=== PATIENT | female | born 1935 | race Caucasian/White ===

== ENCOUNTER 2019-08-10 15:52 | Emergency (ER) | payer MEDICARE, OTHER ==
[~2019-08-10] VITALS: Ht 154.9 cm; Wt 52.2 kg
[2019-08-10 16:00] VITALS: BP_SYST 106
--- NOTE | 2019-08-10 16:00 | NUR ---
Patient to ER bed 02 to gown for evaluation. Side rails up.
--- NOTE | 2019-08-10 16:05 | NUR ---
Patient brought in by [employer] [facility] ambulance c/o generalized weakness and low blood pressure that started today. Curriculum Development Manager stated that patient was hypotensive during their assessment. Denied any chest pain or shortness of breath. Patient is alert and oriented x2, respirations even and unlabored, speaking in full sentences. VSS, pain level 0/10. Informed of the wait time. Instructed to notify ED staff for any changes in condition or worsening of symptoms. Patient verbalized understanding.
[2019-08-10] MEDS ORDERED: NACL 0.9% 1,000 ML IV ONE (16:25)
--- NOTE | 2019-08-10 16:30 | NUR ---
ER Dr. Baker at bedside examining patient.
--- NOTE | 2019-08-10 16:45 | NUR ---
cardiac cath lab technologist at bedside collecting blood specimen. Patient tolerated the procedure well.
[2019-08-10 17:02] LABS: BASOPHILS % (AUTO) 0.2 % (0.0-2.0); EOSINOPHILS % (AUTO) 0.1 % (0.0-4.0); HEMATOCRIT 38.6 % (36-48); HEMOGLOBIN 13.1 g/dL (12.0-16.0); LYMPHOCYTES # (AUTO) 0.5 K/uL (1.0-5.5); MEAN CORPUSCULAR HEMOGLOBIN 31 pg (27-31); MEAN CORPUSCULAR HGB CONC 34 % (32-36); MEAN CORPUSCULAR VOLUME 90 fL (79.0-98.0); MONOCYTES # (AUTO) 0.6 K/uL (0.0-1.0); MONOCYTES % (AUTO) 4.9 % (1.7-9.3); NEUTROPHILS # (AUTO) 10.7 K/uL (1.8-7.7); NEUTROPHILS % (AUTO) 90.8 % (40.0-70.0); PLATELET COUNT (AUTO) 205 K/uL (130-430); RED BLOOD CELL COUNT(AUTO) 4.29 MIL/uL (4.2-6.2); RED CELL DISTRIBUTION WIDTH 13.8 % (9.0-15.0); WHITE BLOOD COUNT (AUTO) 11.8 K/uL (4.8-10.8)
--- NOTE | 2019-08-10 17:04 | NUR ---
ECG done at bedside as ordered by Dr. Baker. Patient tolerated the procedure well. Report given to
[2019-08-10 17:18] LABS: ANION GAP 13 (5-15); CALCIUM 10.2 mg/dL (8.4-11.0); CHLORIDE 100 mmol/L (98-107); CREATININE 1.83 mg/dL (0.55-1.30); GLUCOSE 149 mg/dL (70-99); POTASSIUM 3.9 mmol/L (3.5-5.1); SODIUM SERUM 137 mmol/L (136-145); UREA NITROGEN, BLOOD 60 mg/dL (8-21)
[2019-08-10 17:23] LABS: ALANINE AMINOTRANSFERASE 12 U/L (12-78); ALBUMIN 3.3 g/dL (3.4-4.8); ASPARTATE AMINOTRANSFERASE 14 U/L (10-37); TOTAL BILIRUBIN 0.6 mg/dL (0.0-1.0)
--- NOTE | 2019-08-10 18:45 | NUR ---
# 16 FR In and Out catheter with use of sterile technique. Immediate return of 100 ml clear yellow urine noted. Urine sample collected and sent to lab. Pt tolerated procedure well. Patient unable to toilet self.
--- NOTE | 2019-08-10 18:56 | NUR ---
Patient is resting comfortably in bed, no respiratory distress at this time.
[2019-08-10 19:08] LABS: BILIRUBIN,URINE 1+ (NEGATIVE); BLOOD, URINE 1+ (NEGATIVE); CLARITY/URINE CLEAR (CLEAR); COLOR,URINE YELLOW (YELLOW); GLUCOSE,URINE NEGATIVE (NEGATIVE); KETONES,URINE 2+ (NEGATIVE); LEUKOCYTE ESTERASE ,URINE NEGATIVE (NEGATIVE); NITRITE, URINE NEGATIVE (NEGATIVE); PROTEIN URINE NEGATIVE (NEGATIVE); UROBILINOGEN,URINE 0.2 (0.2-1.0)
--- NOTE | 2019-08-10 19:20 | NUR ---
Report given and care transferred to CHARITY Kulkarni.
[2019-08-10 19:25] LABS: BACTERIA,URINE FEW /HPF (None Seen); HYALINE CASTS, URINE 0-10 /LPF (None Seen); WBC,URINE 0-3 /HPF (0-3)
--- NOTE | 2019-08-10 20:09 | NUR ---
Patient resting quietly. No acute distress noted. Vital signs within normal range. Will continue to monitor.
--- NOTE | 2019-08-10 22:30 | NUR ---
Patient to be transferred to [facility]. Is being transferred due to insurance. Receiving facility has accepting physician and available space. ER physician Floridalma has signed transfer form. Patient or responsible alliance party has agreed to transfer and signed form. Patient belongings inventoried and will be sent with patient. Copy of nursing notes, lab reports, EKG, Physicians Orders and X-rays to be sent with patient. Report called to Lorraine at receiving facility. Receiving physician is Jessenia. [facility] has been called for transfer. ETA is 2300.
--- NOTE | 2019-08-10 23:03 | NUR ---
Pt to be transferred to [facility] by [facility]. Vital signs stable.
[2019-08-10 23:04] VITALS: BP_SYST 115
== END 2019-08-10 23:04 | disposition short-term general hospital (02) ==
LOC: SED 15:52
DX: E86.0 Dehydration (principal); I95.9 Hypotension, unspecified; N19 Unspecified kidney failure; I10 Essential (primary) hypertension
CPT/HCPCS: 36415; 71045; 80053; 81000; 83605; 85025; 86710; 87040; 87086; 93005; 96360; 99285; J7030